=== PATIENT | male | born 2000 | race Caucasian/White ===

== ENCOUNTER 2021-02-06 20:10 | Emergency (ER) | payer OTHER ==
[~2021-02-06] VITALS: Ht 188 cm; Wt 90.7 kg
[~2021-02-06 20:10] MED LIST: ALBU90OI INH; AMOX50SU PO; CEPH250SUA PO; CODACEE120 PO; HYDACE5325 PO; HYDR1TAB94 PO; IBUP400 PO; IBUP600 PO; PROM25 PO; SULTRIEL PO
[2021-02-06] MEDS ORDERED: AMOCLA875 PO (22:05)
== END 2021-02-06 22:20 | disposition home or self-care (01) ==
LOC: ER 20:10
DX: S61.412A Laceration without foreign body of left hand, initial encounter (principal); Y04.0XXA Assault by unarmed brawl or fight, initial encounter
CPT/HCPCS: 73130; 90471; 90714; 96365; 99283-25; A9270; J0295

== ENCOUNTER 2021-02-07 11:46 | Emergency (ER) | payer OTHER ==
[~2021-02-07] VITALS: Ht 188 cm; Wt 90.7 kg
[~2021-02-07 11:46] MED LIST changes: +AMOCLA875 PO
[2021-02-07 13:32] LABS: BASOPHILS ABSOLUTE AUTO 0.05 K/mm3 (0.00-0.23); BASOPHILS PERCENT AUTO 1 % (0-2); EOSINOPHILS ABSOLUTE AUTO 0.16 K/mm3 (0.00-0.68); EOSINOPHILS PERCENT AUTO 2 % (0-6); Hematocrit 47.6 % (37.0-53.0); Hemoglobin 16.1 g/dL (13.5-17.5); IMMATURE GRAN ABSOLUTE AUTO 0.04 K/mm3 (0.00-0.10); IMMATURE GRAN PERCENT AUTO 0 % (0-1); LYMPHOCYTES ABSOLUTE AUTO 2.25 K/mm3 (0.84-5.20); LYMPHOCYTES PERCENT AUTO 22 % (21-46); MONOCYTES PERCENT AUTO 12 % (4-13); Mean Corpuscular HGB 30.4 pg (26.0-34.0); Mean Corpuscular HGB Conc 33.8 g/dL (31.5-36.5); Mean Corpuscular Volume 90 fL (80-100); Mean Platelet Volume 9.5 fL (9.1-12.4); NEUTROPHILS ABSOLUTE AUTO 6.45 K/mm3 (1.96-9.15); NEUTROPHILS PERCENT AUTO 64 % (41-73); Platelet Count 283 K/mm3 (150-400); RDW Coefficient Variation 12.7 % (11.7-14.2); RDW Standard Deviation 41.4 fL (35.1-46.3); White Blood Cell Count 10.15 K/mm3 (4.00-11.30)
[2021-02-07 13:37] LABS: Alanine Aminotransfer (ALT/SGP 52 U/L (12-78); Albumin, Blood 4.3 g/dL (3.4-5.0); Albumin/Globulin Ratio 1.2 (0.8-1.8); Alk Phos 113 U/L (50-136); Anion Gap 6 mmol/L (6-16); Aspartate Aminotrans (AST/SGOT 33 U/L (12-37); Bilirubin, Total 1.2 mg/dL (0.1-1.0); Blood Urea Nitrogen 9 mg/dL (8-24); Bun/Creatinine Ratio 10.9 (12.0-20.0); CO2, Blood 27 mmol/L (21-32); Calcium, Blood 9.1 mg/dL (8.5-10.1); Chloride, Blood 104 mmol/L (98-108); Creatinine, Blood 0.82 mg/dL (0.60-1.20); Globulin, Blood 3.6 g/dL (2.2-4.0); Glomerular Filtration Rate >60 (60-); Glucose, Blood 88 mg/dL (70-99); Potassium, Blood 3.7 mmol/L (3.5-5.5); Sodium, Blood 137 mmol/L (136-145); Total Protein, Blood 7.9 g/dL (6.4-8.2)
== END 2021-02-07 15:45 | disposition home or self-care (01) ==
LOC: ER 11:46
PROVIDERS: Physician Assistant
DX: S61.451D Open bite of right hand, subsequent encounter (principal); X58.XXXD Exposure to other specified factors, subsequent encounter
CPT/HCPCS: 36415; 80053; 85025; 96374; 99283-25; J0295

== ENCOUNTER 2022-09-24 23:17 | Emergency (ER) | payer OTHER ==
[~2022-09-24] VITALS: Ht 185.4 cm; Wt 95.2 kg
[2022-09-25] MEDS ORDERED: CRUTCH2 XX (00:41)
== END 2022-09-25 01:15 | disposition home or self-care (01) ==
LOC: ER 23:17
DX: S82.841A Displaced bimalleolar fracture of right lower leg, initial encounter for closed fracture (principal); Y04.0XXA Assault by unarmed brawl or fight, initial encounter
CPT/HCPCS: 36415; 73610; A9270; J1885

== ENCOUNTER 2022-10-09 06:26 | Day surgery (SDC) | payer OTHER ==
[~2022-10-09] VITALS: Ht 185.4 cm; Wt 87.9 kg
[~2022-10-09 06:26] MED LIST changes: +CRUTCH2 XX
--- NOTE | 2022-10-09 08:04 | NUR ---
10/09/22 0804 Dutch Hernandez 2 CHLORAPREP STICKS USED. 0.15ML OF EPI 1MG/ML ADDED TO 30ML OF ROPIVICAINE 0.5% TO CREATE A SOLUTION OF ROPIVICAINE 0.5% WITH EPI 1:200,000.
== END 2022-10-09 11:25 | disposition home or self-care (01) ==
LOC: ORSCSDS 06:26
PROVIDERS: Orthopaedic Surgery
PROC: 0QSJ04Z Reposition Right Fibula with Internal Fixation Device, Open Approach (ICD-10-PCS; principal; 2022-10-09 07:30)
PROC: 0QSG04Z Reposition Right Tibia with Internal Fixation Device, Open Approach (ICD-10-PCS; principal; 2022-10-09 07:30)
DX: S82.841A Displaced bimalleolar fracture of right lower leg, initial encounter for closed fracture (principal); F17.210 Nicotine dependence, cigarettes, uncomplicated
CPT/HCPCS: A9270; C1713; J0171; J1100; J1170; J1885; J2250; J2270; J2405; J2704; J2795; J3010; J7120